=== PATIENT | female | born 1995 | race African-American/Black ===

== ENCOUNTER → 2016-06-14 | Outpatient (CLI) | payer MEDICAID ==
--- NOTE | 2016-06-14 15:37 | WOMENS IMAGING REPORT ---
EXAM DESCRIPTION: U/S BREAST UNILATERAL, COMPL COMPLETED DATE/TIME: 06/14/2016 2:11 pm REASON FOR STUDY: N63 LUMP N63 UNSPECIFIED LUMP IN BREAST COMPARISON: None. TECHNIQUE: Real-time and static grayscale imaging performed of the entire left breast. Selected colo r Doppler images recorded. LIMITATIONS: None. FINDINGS: The left breast itself is unremarkable. Along the left anterior chest wall near the inframammary fold medially, there is a 2.3 x 1.5 x 0.4 cm complex cyst just deep to the skin surface, likely an infected or inflamed sebaceous cyst. BIRAD: 1 Negative. RECOMMENDATION: RECOMMENDED FOLLOW-UP: Follow-up as clinically indicated. COMMENT: The [employer] [place] [employer] (A[employer]) has developed recommendations for screening MRI of the breasts in certain patient populations, to be used in conjunction with mammography. Breast MRI s urveillance may be appropriate for women with more than 20% lifetime risk of developing breast cancer as determined by genetic testing, significant family history of the disease, or history of mantle r adiation for Hodgkins Disease. ACR Practice Guidelines 2008. TECHNICAL DOCUMENTATION: JOB ID: [id number] [employer]- All Rights Reserved
== END ==
LOC: WI 13:41
PROVIDERS: ATTEND Physician Assistant
DX: N63 Unspecified lump in breast (principal)
CPT/HCPCS: 76641

== ENCOUNTER 2018-10-30 00:22 | Emergency (ER) | payer SELFPAY ==
--- NOTE | 2018-10-30 02:34 | ER Document Report ---
HPI - HPI Time Seen by Provider: 10/30/18 02:27 Pain Level: 5 Notes: Patient is a 23-year-old female presented to the [facility] ankle pain. Patient reports she tripped and fell just a few hours prior to arrival. Patient reports she has tried applying ice to the area but is having increased pain. Patient reports the pain feels throbbing and is constant. - REPRODUCTIVE Reproductive: DENIES: : Past Medical History - General Information source: Patient - Social History Smoking Status: Never Smoker Frequency of alcohol use: None Drug Abuse: None Family History: Reviewed & Not Pertinent - Medical History Medical History: Negative Surgical Hx: Negative - Immunizations Immunizations up to date: Yes Vertical Provider Document - CONSTITUTIONAL Notes: PHYSICAL EXAMINATION: GENERAL: Well-appearing, well-nourished and in no acute distress. HEAD: Atraumatic, normocephalic. EYES: Pupils equal round extraocular movements intact, conjunctiva are normal. ENT: Nares patent NECK: Normal range of motion LUNGS: No respiratory distress Musculoskeletal: Mild edema noted to lateral right ankle without ecchymosis or erythema. Cap refill less than 3 seconds, strong dorsalis pedis pulse. NEUROLOGICAL: Normal speech. PSYCH: Normal mood, normal affect. SKIN: Warm, Dry, normal turgor, no rashes or lesions noted. - INFECTION CONTROL TRAVEL OUTSIDE OF THE [place] IN LAST 30 DAYS: No Course - Re-evaluation Re-evalutation: X-rays negative for any acute findings. Patient will be placed in an Ayad wrap with ankle stirrup and placed on crutches. Patient will be encouraged to apply ice to the area, elevate and use ibuprofen. Patient verbalizes understanding and agreement of plan. - Vital Signs Vital signs: Temp Pulse Resp BP Pulse Ox 98.4 F 100 18 122/72 99 10/30/18 00:29 10/30/18 00:29 10/30/18 00:29 10/30/18 00:29 10/30/18 00:29 Procedures - Immobilization right ankle Immobilizer type: Ayad wrap Performed by: PCT Post-Proc Neuro Vasc Exam: Normal Alignment checked and good: No Discharge - Discharge Clinical Impression: Ankle sprain Qualifiers: Encounter type: initial encounter Involved ligament of ankle: unspecified ligament Laterality: right Qualified Code(s): S93.401A - Sprain of unspecified ligament of right ankle, initial encounter Condition: Stable Disposition: HOME, SELF-CARE Additional Instructions: SPRAINED ANKLE: Your sprained ankle results from stretching or tearing of the ligaments which support the ankle. This usually results from twisting the foot inward and under. The ligaments will require time and protection in order to heal properly. Many ankle sprains are quite disabling, and should be taken seriously. The usual treatment for an ankle sprain is cold packs; protection with tape, splints, or wraps; elevation; and staying off the ankle for at least a day. As the ankle improves, you can walk IF it's not painful to bear weight. Sports are best postponed until healing is complete. More serious sprains usually require strengthening exercises after early healing. Your physician has assessed the seriousness of the ligament injury to your ankle. However, the treatment may change, depending on how your ankle progresses. If further exams were recommended, it is important that you follow through. Call the doctor if your foot becomes numb, painful, or severely swollen. ANKLE STIRRUP SPLINT: You are to use an ankle brace called a stirrup splint. This type of brace allows you to place greater stresses on the ankle without risk of re-injury, and is often used for more severe ankle injuries such as avulsion fractures and ligament ruptures. The splint can be worn over a sock or tape. For proper support, wear the splint with a shoe over it. It's important that the splint fit properly. Adjust the heel tension, if needed. If your splint has air bladders, peel back the bottom of each air bladder, then move the Velcro attachment of the heel strap up or down. Air bladder pressure can be adjusted by pulling up the valve at the top, threading the air tube down into the main bladder, then blowing air into the bladder or squeezing it out. The two sides of the stirrup can be moved forward or back on your ankle by changing the attachment of the main straps. If you are unable to use the ankle comfortably in the splint, return for re-evaluation. USE OF CRUTCHES: The doctor has recommended that you not bear weight at this time. You will need to use crutches. Adjust the crutches so the tops come to about two inches under the armpit while you are standing upright. Use your hands -- not your armpits -- to support your weight. To get into a chair, support yourself with one crutch on the injured side. Hold the chair with the other hand, then lower yourself while putting all your weight on the good leg. Going up stairs is `good leg up, step up, then bring up crutches and bad leg.' Down stairs is `bad leg and crutches down, then bring good leg down.' If you develop numbness or swelling in an arm or hand, you are using the crutches incorrectly. Return if you are having any problems with the crutches. ICE & ELEVATION: Apply ice packs frequently against the painful area. Many different schedules are recommended, such as "20 minutes on, 20 minutes off" or "one hour ice, two hours rest." If you need to work, you may need to go longer between ice treatments. You should plan to have the area ice packed AT LEAST one-fourth of the time. The ice should be applied over the wrap, tape, or splint, or over a layer of cloth -- not directly against the skin. Some ice bags have a built-in cloth and can be put directly on the skin. Your injured part should be elevated as much as possible over the next 48 hours. Try to keep the injury above the level of the heart. Avoid use of the injured area. Elevation and rest will decrease the swelling. USE OF [id number] IBUPROFEN: Ibuprofen (Advil, Nuprin, Medipren, Motrin IB) is a medication for fever and pain control. In addition, it has anti- inflammatory effects which may be beneficial, especially in the treatment of injuries. It's best to take ibuprofen with food. Persons with ulcer disease or allergy to aspirin should notify their physician of this before taking ibuprofen. Ibuprofen can be given every four to six hours, for a total of four doses daily. Age Pain or fever dose Antiinflammatory dose 6-8 yr 200 mg (1 tab) 200 mg (1 tab) 9-11 yr 200 mg (1 tab) 200-400 mg (1-2 tab) 11-14 yr 200-400 mg (1-2 tab) 400 mg (2 tab) 15-adult 400 mg (2 tab) 600 mg (3 tab) FOLLOW-UP CARE: If you have been referred to a physician for follow-up care, call the physicians office for an appointment as you were instructed or within the next two days. If you experience worsening or a significant change in your symptoms, notify the physician immediately or return to the Emergency Department at any time for re-evaluation. The x-ray today was negative for any fracture or dislocation. You have sprained your ankle. Please use the ankle stirrup splint for support. Ice and elevate as outlined above. Take ibuprofen 600 mg every 6 hours for pain. Return to the emergency department with any new or worsening symptoms. Forms: Return to Work
[2018-10-30] MEDS ORDERED: HYDROCODONE/ACETAMINOPHEN 5-325 MG TABLET PO ONE (02:41)
--- NOTE | 2018-10-30 03:06 | RADIOLOGY REPORT (SQ) ---
EXAM DESCRIPTION: XR ANKLE 3 OR MORE VIEWS COMPLETED DATE/TME: 10/30/2018 00:00 CLINICAL HISTORY: 23 years, Female, twisted while running COMPARISON: None. NUMBER OF VIEWS: 3 TECHNIQUE: 3 view right ankle LIMITATIONS: None FINDINGS: Negative for acute fracture or dislocation. Ankle mortise is intact IMPRESSION: Negative exam copyright 2011 [employer]- All Rights Reserved
[2018-10-30 04:09] VITALS: BP 115/67
== END 2018-10-30 04:09 | disposition home or self-care (01) ==
LOC: ER 00:22
DX: S93.401A Sprain of unspecified ligament of right ankle, initial encounter (principal); W19.XXXA Unspecified fall, initial encounter
CPT/HCPCS: 99283; 73610; L1902

== ENCOUNTER 2019-01-15 18:27 | Emergency (ER) | payer SELFPAY ==
--- NOTE | 2019-01-15 18:53 | ER Document Report ---
ED Medical Screen (RME) - General Chief Complaint: Suicidal Ideation Stated Complaint: PSYCH Time Seen by Provider: 01/15/19 18:40 Mode of Arrival: Ambulatory Information source: Patient Notes: This 23-year-old female presents emergency department with reports of depression feels like life is not worth living. Reports thoughts of suicide has a plan with a gun. Denies mental health history. Denies past medical history of suicide attempt. Denies substance abuse but reports she does smoke pot and take Percs. Patient has flat affect very calm. I have greeted and performed a rapid initial assessment of this patient. A comprehensive ED assessment and evaluation of the patient, analysis of test results and completion of the medical decision making process will be conducted by additional ED providers. Dictation of this chart was performed using voice recognition software; therefore, there may be some unintended grammatical errors. TRAVEL OUTSIDE OF THE [place] IN LAST 30 DAYS: No - Related Data Allergies/Adverse Reactions: No Known Allergies Allergy (Verified 01/15/19 18:28) Past Medical History - Social History Frequency of alcohol use: q2 days Drug Abuse: Marijuana, Prescription drugs Renal/ Medical History: Denies: Hx Peritoneal Dialysis - Immunizations Immunizations up to date: Yes Physical Exam - Vital signs Vitals: Temp Pulse Resp BP Pulse Ox 98.4 F 97 18 128/77 H 94 01/15/19 18:33 01/15/19 18:33 01/15/19 18:33 01/15/19 18:33 01/15/19 18:33 Course - Vital Signs Vital signs: Temp Pulse Resp BP Pulse Ox 98.4 F 97 18 128/77 H 94 01/15/19 18:33 01/15/19 18:33 01/15/19 18:33 01/15/19 18:33 01/15/19 18:33
[2019-01-15 19:17] LABS: ABSOLUTE BASOPHILS # (AUTO) 0.1 10^3/uL (0.0-0.2); ABSOLUTE LYMPHOCYTES (AUTO) 1.8 10^3/uL (0.5-4.7); ABSOLUTE MONOCYTES (AUTO) 0.6 10^3/uL (0.1-1.4); ABSOLUTE NEUT (AUTO) 7.6 10^3/uL (1.7-8.2); BASOPHILS % (AUTO) 0.5 % (0-2); EOSINOPHILS % (AUTO) 0.3 % (0-6); HEMATOCRIT 41.5 % (36.0-47.0); HEMOGLOBIN 13.7 g/dL (12.0-15.5); LYMPHOCYTES % (AUTO) 17.9 % (13-45); MEAN CORPUSCULAR HEMOGLOBIN 29.2 pg (27.0-33.4); MEAN CORPUSCULAR HGB CONC 32.9 g/dL (32.0-36.0); MEAN CORPUSCULAR VOLUME 89 fl (80-97); MONOCYTES % (AUTO) 6.1 % (3-13); PLATELET COUNT 306 10^3/uL (150-450); RED BLOOD COUNT 4.68 10^6/uL (3.72-5.28); RED CELL DISTRIBUTION WIDTH 14.6 % (11.5-14.0); SEGMENTED NEUTROPHILS % (AUTO) 75.2 % (42-78); TOTAL CELLS COUNTED % (AUTO) 100 %; WHITE BLOOD COUNT 10.1 10^3/uL (4.0-10.5)
[2019-01-15 19:36] LABS: ACETAMINOPHEN < 10 ug/mL (10-30); ALBUMIN 4.2 g/dL (3.5-5.0); ALCOHOL < 10 mg/dL (NONE DETECTED); ALKALINE PHOSPHATASE 64 U/L (38-126); ANION GAP 9 (5-19); ASPARTATE AMINO TRANSFERASE 21 U/L (14-36); BILIRUBIN,DIRECT 0.2 mg/dL (0.0-0.4); BILIRUBIN,TOTAL 0.5 mg/dL (0.2-1.3); BLOOD UREA NITROGEN 4 mg/dL (7-20); CALCIUM 9.6 mg/dL (8.4-10.2); CARBON DIOXIDE 26 mmol/L (22-30); CHLORIDE 104 mmol/L (98-107); GLUCOSE 92 mg/dL (75-110); POTASSIUM 3.6 mmol/L (3.6-5.0); SALICYLATE < 1.0 mg/dL (2.0-20.0); TOTAL PROTEIN 7.1 g/dL (6.3-8.2)
[2019-01-15 20:03] LABS: APPEARANCE,URINE CLEAR; BILIRUBIN,URINE NEGATIVE (NEGATIVE); COLOR,URINE STRAW; GLUCOSE, URINE NEGATIVE (NEGATIVE); KETONES,URINE NEGATIVE (NEGATIVE); LEUKOCYTE ESTERASE,URINE NEGATIVE (NEGATIVE); NITRITE,URINE NEGATIVE (NEGATIVE); PROTEIN,URINE NEGATIVE (NEGATIVE); URINE SPECIFIC GRAVITY 1.004; UROBILINOGEN,URINE NEGATIVE mg/dL (<2.0)
[2019-01-15 20:19] LABS: URINE AMPHETAMINES SCREEN NEGATIVE; URINE BARBITURATES SCREEN NEGATIVE; URINE BENZODIAZEPINES SCREEN NEGATIVE; URINE COCAINE SCREEN NEGATIVE; URINE MARIJUANA (THC) SCREEN UNCONFIRMED POSITIVE; URINE METHADONE SCREEN NEGATIVE; URINE PHENCYCLIDINE SCREEN NEGATIVE
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
--- NOTE | 2019-01-16 07:31 | EKG REPORT ---
SEVERITY:- NORMAL ECG - SINUS RHYTHM : Confirmed by: Manohar Cannon MD 16-Jan-2019 07:30:55
--- NOTE | 2019-01-16 16:43 | ER Document Report ---
Doctor's Note Notes: 01/16/19 16:41 Rounds: Chart reviewed and patient interviewed. Patient says she been feeling depressed and suicidal. She checked in here in the emergency department and then tried to leave and actually ran but she was called and brought back for us to evaluate. Lab studies were all essentially normal. Vital signs are all essentially normal except for blood pressure of 93 systolic which I am sure is an error so have asked to have it repeated. Labs are all unremarkable. Patient appears to be medically stable for transfer or discharge. Ambreen Rice MD
[2019-01-16] MEDS ORDERED: NICOTINE 14 MG/24 HR PATCH.TD24 TD ONE (16:48)
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
--- NOTE | 2019-01-17 09:16 | ER Document Report ---
Doctor's Note Notes: 01/17/19 09:15 23-year-old female here for suicidal ideations. Vital signs are stable. Labs unremarkable. Pending psychiatric disposition. 01/17/19 14:42 Patient has been seen and assessed by the behavioral health team. Patient is completely oriented at this time. No homicidal suicidal ideations. No auditory visual hallucinations. Patient takes no psychiatric meds. She believes this was secondary to "bad marijuana". Mom is been spoken to in person. She is comfortable with the patient going home being discharged. We have provided outpatient resources. Strict return precautions have been discussed with the patient.
[2019-01-17 15:50] VITALS: BP 101/84
== END 2019-01-17 15:48 | disposition home or self-care (01) ==
LOC: ER 18:27
DX: R45.851 Suicidal ideations (principal); F19.10 Other psychoactive substance abuse, uncomplicated; F17.200 Nicotine dependence, unspecified, uncomplicated
CPT/HCPCS: 36415; 80053; 80307; 81001; 84703; 85025; 93005; 93010; 99285